=== PATIENT | male | born 1995 | race Caucasian/White ===

== ENCOUNTER 2019-08-06 19:17 | Emergency (ER) | payer MEDICAID, SELFPAY ==
[2019-08-06 19:19] VITALS: BP 132/76; PULSE 56; RESP 18; TEMP 36.9; O2SAT 100; BMI 21.1
--- NOTE | 2019-08-06 19:40 | HMH.EDUTC ---
[facility] [place] Disposition Clinical Impression: Diarrhea Qualifiers: Diarrhea type: unspecified type Qualified Code(s): R19.7 - Diarrhea, unspecified Disposition: Home, Self-Care Condition on Discharge: Good Instructions: Giardiasis, Metronidazole, DI for Giardiasis Additional Instructions: Drink plenty of fluids. Water and sports drinks (like gatorade) would be best. Take tylenol or ibuprofen for pain or fever. Take the metronidazole antibiotics as directed. Don't drink alcohol while you are on this antibiotic. Follow up with your regular doctor. GO TO THE ER FOR ANY WORSENING SYMPTOMS Prescriptions: Ondansetron [Zofran 4mg ODT] 4 mg PO Q8HP PRN #20 tab.rapdis PRN Reason: Nausea Transmission Status: Received by [id number] metroNIDAZOLE [Metronidazole 250mg Tablet] 250 mg PO Q8H 7 Days #21 tab Transmission Status: Received by [id number] Referrals: Provider,Referral, MD [Primary Care Provider] - Forms: Work/School Release Time of Disposition: 19:53 Medical Decision Making - Medical Records Medical records reviewed: No: I reviewed the patient's medical records. - Pérez Inquiry Pt receiving controlled substance: No Vital Signs: 08/06/19 19:19 Temperature 98.4 F Temperature Source Oral Pulse Rate [Radial] 56 L Respiratory Rate 18 Blood Pressure [Right Arm] 132/76 Blood Pressure Mean [Right Arm] 94 Blood Pressure Source [Right Arm] Automatic Cuff Blood Pressure Position [Right Arm] Sitting 02 Sat by Pulse Oximetry 100 Oxygen Delivery Method Room Air Orders (Tests/Meds): ORDERS Category Date Time Status Diarrhea 23 Panel, PCR Stat Lab 08/06/19 19:44 Received Ova + Parasite Exam Stat Micro 08/06/19 19:46 Ordered Medical Decision Narrative: Stools sample collected in the office and sent to the lab to do diarrhea panel and O&P. I went ahead and started him on metronidazole due to the history of drinking the dirty [place] water before his symptoms began. [facility] [place] HPI - General Stated complaint: stomach cramps nausea vomitting diarrhea drank Time Seen by Provider: 08/06/19 19:40 Mode of Arrival: Ambulatory Source of Information: Patient Limitations: No Limitations Description of Symptoms (Recalled from Triage Doc. by RN): drank [place] water on sunday, woke up sunday with stomach cramps, nausea, vomiting and diarrhea. States the Arnulfo schroeder drank it too and he is fine. HEENT Symptoms (Recalled from RN notes): No Resp Symptoms (Recalled from RN notes): No Skin Symptoms (Recalled from RN notes): No MS Symptoms (Recalled from RN notes): No Functional Status (Recalled from RN notes): wnl - History of Present Illness Provider Complaint: He c/o 2 days of worsening diarrhea. He has also felt nauseated but he has not vomited. He denies any blood in his stool, fever, chills, or abdominal pain (other than some cramping when he has diarrhea). He states that he drunk [place] water a couple days before his symptoms began. He wasn't the only one to drink the water, but he has been the only one to develope these symptoms. - Related Data Previous Rx's Medication Instructions Recorded Ondansetron [Zofran 4mg ODT] 4 mg PO Q8HP PRN #20 tab.rapdis 08/06/19 metroNIDAZOLE [Metronidazole 250mg 250 mg PO Q8H 7 Days #21 tab 08/06/19 Tablet] Allergies Allergy/AdvReac Type Severity Reaction Status Date / Time No Known Allergies Allergy Verified 08/06/19 19:46 - Worker's Comp Is this a Worker's Comp case?: No [facility] History - Hepatitis A Screen Drug use history?: No High risk sexual behaviors?: No History of sexually transmitted infection?: No Currently employed?: No Childcare worker?: No Do you have indoor plumbing?: Yes Do you have electricity?: Yes Attestation statement:: This patient has been screened for Hepatitis A risk factors. I have reviewed the patient's past medical history: Yes - Social History Educational Level: Completed High School
[2019-08-06 19:51] LABS: Adenovirus F 40/41, stool Not Detected (NotDetected); Astrovirus Not Detected (NotDetected); Campylobacter Not Detected (NotDetected); Clostridium Difficile A/B, PCR Not Detected (NotDetected); Cryptosporidium Not Detected (NotDetected); Cyclospora Cayetanesis Not Detected (NotDetected); Entamoeba histolytica Not Detected (NotDetected); Enteroaggregative E coli Not Detected (NotDetected); Enteropathogenic E coli Not Detected (NotDetected); Enterotoxigenic E coli Not Detected (NotDetected); Giardia lamblia Not Detected (NotDetected); Norovirus Not Detected (NotDetected); Plesimonas Shigalloides, PCR Not Detected (NotDetected); Rotavirus A Not Detected (NotDetected); Salmonella, PCR Not Detected (NotDetected); Sapovirus Not Detected (NotDetected); Shigella Enterovasive E coli Not Detected (NotDetected); Vibrio Cholerae Not Detected (NotDetected); Vibrio, PCR Not Detected (NotDetected); Yersinia Entercolitica, PCR Not Detected (NotDetected)
[2019-08-06 20:04] VITALS: BP 132/76; PULSE 56; RESP 18; TEMP 36.9; O2SAT 100
[2019-08-06 21:56] LABS: Shiga-like toxin E coli Detected (NotDetected)
== END 2019-08-06 20:05 | disposition home or self-care (01) ==
PROVIDERS: Emergency Provider Nurse Practitioner Family
DX: A04.4 Other intestinal Escherichia coli infections (principal)
CPT/HCPCS: 87507; 99201